=== PATIENT | female | born 1990 | race Caucasian/White ===

== ENCOUNTER → 2016-10-17 | Outpatient (CLI) | payer OTHER ==
--- NOTE | 2016-10-18 17:18 | ECGEPIP ---
Stationary ECG Study [facility] Test Date: 2016-10-17 Pat Name: ILIANA LARIOS Department: Room: - Gender: F Long Term Care Social Worker: ESTELLE : 1990 Requested By: HOLA Coats CNM Order Number: [id number] Reading MD: Jeronimo Gould Measurements Intervals [place] Rate: 84 P: 15 AR: 171 QRS: 39 QRSD: 91 T: -7 QT: 350 QTc: 415 Interpretive Statements SINUS RHYTHM NORMAL Electronically Signed On 10-18-2016 17:18:19 EST by Jeronimo Gould
== END | disposition home or self-care (01) ==
LOC: M EKG 12:31
PROVIDERS: ATTEND Advanced Practice Midwife
DX: O24.112 Pre-existing type 2 diabetes mellitus, in pregnancy, second trimester (principal); Z36 Encounter for antenatal screening of mother; E11.9 Type 2 diabetes mellitus without complications; Z3A.15 15 weeks gestation of pregnancy